=== PATIENT | female | born 1980 | race Caucasian/White ===

== ENCOUNTER 2019-08-14 11:56 | Emergency (ER) | payer OTHER ==
[~2019-08-14] VITALS: Ht 167.6 cm; Wt 59.0 kg
[~2019-08-14 11:56] MED LIST: MACROBID 100 M100 M1 PO; NAPROSYN500 MG PO
[2019-08-14 12:07] LABS: URINE BILIRUBIN NEGATIVE (Negative); URINE BLOOD NEGATIVE (Negative); URINE CLARITY CLEAR; URINE COLOR YELLOW; URINE GLUCOSE-RANDOM* NEGATIVE (Negative); URINE KETONES NEGATIVE (Negative); URINE NITRITE-REFLEX NEGATIVE (Negative); URINE PROTEIN (DIPSTICK) NEGATIVE (Negative); URINE UROBILINOGEN 0.2 E.U./dl (0.2-1.0)
[2019-08-14 12:10] LABS: URINE LEUKOCYTES-REFLEX 1+ (Negative)
[2019-08-14 12:27] LABS: SQUAMOUS 0-3 Few /LPF (0-3)
[2019-08-14 12:28] LABS: BACTERIA-REFLEX >30 Many /HPF (None Seen); URINE WBC-REFLEX 6-15 Few /HPF (0-5)
[2019-08-14] MEDS ORDERED: FLAGYL500 M1 PO (14:14)
[2019-08-14] MEDS ORDERED: KEFLEX500 M1 PO (14:14)
[2019-08-14 14:27] VITALS: BP 144/94
== END 2019-08-14 14:27 | disposition home or self-care (01) ==
LOC: ER 11:56
PROVIDERS: Emergency Medicine
DX: N76.0 Acute vaginitis (principal); M79.7 Fibromyalgia